=== PATIENT | female | born 1935 | race Caucasian/White ===

== ENCOUNTER 2018-10-06 16:52 | Inpatient (IN) | payer OTHER ==
[~2018-10-06] VITALS: Ht 160 cm; Wt 64.9 kg
[2018-10-06 18:30] VITALS: BP 125/54
[2018-10-06 18:53] LABS: HEMATOCRIT 39.8 % (37.0-47.0); HEMOGLOBIN 13.2 gm/dL (12.0-15.0); MCH 30.9 pg (26.0-34.0); MCHC 33.2 g/dL (28.0-37.0); MCV 93.1 fL (80.0-100.0); RBC 4.28 mil/uL (4.20-5.00); WBC 12.2 thou/uL (4.0-11.0)
[2018-10-06 19:00] LABS: CALCIUM 9.9 mg/dL (8.5-10.1); CREATININE 1.4 mg/dL (0.6-1.0); POTASSIUM 4.4 mmol/L (3.5-5.1)
[2018-10-06 19:41] VITALS: BP 118/53
--- NOTE | 2018-10-06 20:31 | NUR ---
PATIENT CAME IN TO THE FLOOR AT 1745. ADMISSION DISCHARGE NURSE DID THE ADMISISON. DR Reina BOWER INFORMED, ORDER RECIVED FOR ADMISSION, ORDERS ENTERED. REPORT GIVEN TO NIGHT NURSE.
--- NOTE | 2018-10-07 01:15 | NUR ---
PT'S TEMP AT START OF SHIFT WAS 100.5,PHYSICAIN NOTIFIED,ORDER NOTED AND CARRIED OUT.PT REQUESTED FOR A FLORES CATH,PHYSICIAN'S ORDER NOTED AND CARRIED OUT.PT ON 2L/NC THIS SHIFT.COLOSTOMY IN PLACE.IVF INFUSING ORDERED.FALL PRECAUTIONS IN PLACE,CALL LIGHT WITHIN REACH.
[2018-10-07 03:57] VITALS: BP 138/52
[2018-10-07 07:10] VITALS: BP 148/62
--- NOTE | 2018-10-07 08:01 | NUR ---
RECEIVED PT APPROX 0715. A/O. C/O BLADDER PRESSURE. FLORES REPLACED BY AGNES AGARWAL. RYAN GREEN. NO NOTED SOA. COLOSTOMY WITH BROWN OUTPUT. BED ALARM ON. RESTING IN BED. WILL CONT. TO MONITOR.
--- NOTE | 2018-10-07 13:21 | H ---
[facility] [place] [address] HISTORY AND PHYSICAL Name: DARIO DE LA CRUZ Room #: 418-P [facility] M.R.#: [id number] Admission: 10/06/18 ������������������ Attend Phys: Fernando Pierce Discharge: ������������������ Date of : 39 Report #: [id number] THIS REPORT FOR: //name// CC: David Okeefe DATE OF SERVICE: 10/06/2018 CHIEF COMPLAINT: Weakness and cough. HISTORY OF PRESENT ILLNESS: The patient is an 83-year-old female who was admitted from the office with generalized weakness and cough for several days. She has had a congested cough and has not been eating well. She is globally weak and is having difficulty managing at home. She has had some subjective shortness of breath. She was assessed in the office yesterday and directed for admission for pulmonary treatment. She was mildly hypotensive with blood pressure 95/59 and room air oxygen saturation of 91%. There has also been a report of low-grade fever. PAST MEDICAL HISTORY: Hypertension, depression, scoliosis, chronic back pain. PAST SURGICAL HISTORY: Hip replacement in 2009, colectomy with colostomy in 2014, abdominal hernia repair and cholecystectomy in 2007, carotid artery endarterectomy in 2018. FAMILY HISTORY: Noncontributory. SOCIAL HISTORY: She lives at home. Supportive family. No chronic alcohol or tobacco use. ALLERGIES: None. MEDICATIONS: Percocet 10 mg, tramadol 50 mg as needed, Plavix 75 mg, Coreg 12.5 mg, Cymbalta 30 mg b.i.d., Seroquel 50 mg 1-2 at bedtime, oxybutynin 5 mg, Protonix 40 mg, gabapentin 300 mg, lamotrigine 200 mg, Lipitor 10 mg, Flexeril 5 mg t.i.d. p.r.n. REVIEW OF SYSTEMS: She just complains of a congested cough. No headache, chest pain, shortness of breath, abdominal pain, nausea, vomiting, diarrhea, constipation, dysuria, syncope. She is having trouble urinating overnight. A Gonzalez catheter has been placed. OBJECTIVE: VITAL SIGNS: Temperature 36.9, pulse 65, respirations 18, blood pressure 140/62, O2 sat 99% on 2 liters. GENERAL: She is awake, resting in bed in no distress. HEAD AND NECK: Unremarkable. [address] [place] [address] HISTORY AND PHYSICAL Name: DARIO DE LA CRUZ Room #: 418-P [facility] .R.#: [id number] Admission: 10/06/18 ������������������ Attend Phys: Fernando Pierce Discharge: ������������������ Date of : 39 Report #: [id number] LUNGS: Have expiratory rhonchi bilateral. HEART: Regular, no murmur. ABDOMEN: Soft, normoactive bowel sounds. EXTREMITIES: No edema. NEUROLOGIC: Motor strength 3/5 throughout. LABORATORY DATA: Creatinine is 1.4. White count 12.2. Chest x-ray suggestive of scattered patchy infiltrate. ASSESSMENT: 1. Pneumonia. 2. Hypertension. 3. Chronic kidney disease, stage 3. PLAN: Antibiotics have been ordered along with steroids for congested wheezing and nebulized treatments. We will initiate therapies and activity and Lovenox for DVT prophylaxis. ��������������������������������������������� <ELECTRONICALLY SIGNED> ���������������������������������������� By: Ferny Cardona MD ��������������������������������������������� 10/07/18 1321 [id number] Ferny Cardona MD /nt
[2018-10-07] MEDS ORDERED: CARVEDILOL12.5 MG PO (14:27)
[2018-10-07] MEDS ORDERED: PERCOCET 10-321 EACH PO (14:27)
[2018-10-07] MEDS ORDERED: PLAVIX 75 MG TA75 M1 PO (14:27)
[2018-10-07] MEDS ORDERED: TRAMADOL 50 MG50 MG PO (14:27)
[2018-10-07] MEDS ORDERED: SEROQUEL 50 MG50 MG PO (14:28)
[2018-10-07] MEDS ORDERED: CYMBALTA30 MG PO (14:28)
[2018-10-07] MEDS ORDERED: OXYBUTYNIN 5 MG5 M2 PO (14:30)
[2018-10-07] MEDS ORDERED: PROTONIX40 M1 PO ×2 (14:30→14:31)
[2018-10-07] MEDS ORDERED: NEURONTIN 300300 M1 PO (14:32)
[2018-10-07] MEDS ORDERED: LAMICTAL XR200 MG PO (14:32)
[2018-10-07] MEDS ORDERED: LIPITOR10 MG PO (14:33)
[2018-10-07] MEDS ORDERED: CYCLOBENZAPRINE5 MG PO (14:34)
--- NOTE | 2018-10-07 15:21 | NUR ---
ASSESSMENT-PT WAS LIVING AT HOME AND SHE HAD A SON THAT WAS IN AND OUT. SHE HAD VISITING TOM T DUTY COMING AT 10AM-1400, THEN [id number] DAILY BUT CANCELLED HER CONTRACT LAST WEEK. SHE WAS SUPPOSED TO FLY TO [place] TOMORROW AT 7PM AND THEN WAS MOVING INTO AN ASSISTED LIVING FACILITY. DTR LIVES IN [facility]. PT HAS ANOTHER SON THAT LIVES IN [place] THAT IS HERE VISITING NOW. PT NEEDS ASSIST WITH DRESSING, ABLE TO BATHE SELF. NEEDS ASSIST WITH MEALS, CLEANING ETC. 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 FOLLOWING TO ASSIST WITH DC PLANNING.
[2018-10-07 16:48] VITALS: BP 143/58
--- NOTE | 2018-10-07 20:07 | NUR ---
PT AGREES TO MOVE TO [facility]. REPORT ALREADY GIVEN TO MATTHEW AGARWAL.PT TRANSPORTED VIA BED WITH TWO STAFF. PT LEFT IN STABLE CONDITION-NO COMPLAINS OF PAIN-ON AND WITH NO RESP DISTRESS.
[2018-10-07 20:26] VITALS: BP 127/52
[2018-10-07 20:28] VITALS: BP 127/52
--- NOTE | 2018-10-07 20:28 | NUR ---
Pt. transferred from , room 418 to [facility], room 221. Transported in a stretcher w/ asst of 2 BED MANAGER's. Pt. transferred from one bed to the next by 4 staff members using a draw sheet. Belongings sent w/ pt. Pt. orientated to room/call system/[facility], by this ghost writer. Pt has no c/o pain or discomfort. No s/s of acute distress noted. Pt/ in bed resting w/ call light/desired belongings within reach. Will continue to monitor.
--- NOTE | 2018-10-07 20:36 | NUR ---
Call out to pt.'s son, Miriam Matt re: pt transfer from to [facility]. He states " thank you for informing me, we will be there to see her in the a.m."
--- NOTE | 2018-10-08 05:19 | NUR ---
Assumed pt. care at 2030. Pt A&Ox4; Swallows meds whole w/o difficulty. 02 intact at 3LNC; No sob noted/color WNL. remains on lovenox therapy; no s/s of bleeding noted. Remains on IVABT/URI; no adverse reactions noted. Non - productive cough noted. RAC SL noted; infused ABT/flushed w/o difficulty. Colostomy intact to RLQ; soft brown/green stool noted. Gonzalez Cath intact/draining clear, dark yellow urine w/o difficulty; no odor noted, at this time. SCDs intact to BLEs. Pt denies pain or discomfort. No s/s of acute distress noted. Pt asleep in bed w/ call light/desired belongings within reach. PO fluids encouraged. Will continue to monitor.
[2018-10-08 07:40] VITALS: BP 180/80
--- NOTE | 2018-10-08 10:37 | NUR ---
SW reviewed chart and spoke with nursing. Pt was transferred to [facility] from . LUIS MIGUEL is following to assist as needed with discharge planning.
--- NOTE | 2018-10-08 11:28 | NUR ---
ASSUMED CARE OF PATIENT THIS MORNING. PATIENT IS A&OX4. SHE IS UP WITH 1 ASSIST AND WALKER. FALL PRECAUTIONS ARE IN PLACE. SHE HAS WEAKNESS WHEN AMBULATING. PATIENT HAS A COLOSTOMY AND A CATHETER. SHE HAS NOT COMPLAINED OF ANY PAIN THIS MORNING. MORNING MEDICATIONS WERE ADMINISTERED AND TOLERATED. SHE IS ON 3L O2. PATIENT'S FAMILY IS CONCERNED ABOUT PATIENT BEING DISCHARGED TODAY SINCE SHE HAS A FLIGHT TO [facility] SCHEDULED. AWAITING TO SPEAK WITH THE PHYSICIAN ABOUT PLAN OF CARE. PATIENT IS CURRENTLY SITTING IN CHAIR WITH CALL LIGHT AND BELONGINGS WITHIN REACH.
[2018-10-08 19:42] VITALS: BP 139/80
[2018-10-09 07:14] LABS: HEMATOCRIT 42.2 % (37.0-47.0); HEMOGLOBIN 13.9 gm/dL (12.0-15.0); MCH 30.7 pg (26.0-34.0); MCHC 32.9 g/dL (28.0-37.0); MCV 93.2 fL (80.0-100.0); RBC 4.53 mil/uL (4.20-5.00); WBC 13.5 thou/uL (4.0-11.0)
[2018-10-09 07:25] LABS: CALCIUM 10.2 mg/dL (8.5-10.1); CREATININE 1.2 mg/dL (0.6-1.0)
[2018-10-09 09:00] VITALS: BP 150/84
--- NOTE | 2018-10-09 12:37 | NUR ---
ASSUMED PATIENT AND CARES AT 0715, PATIENT IN BED SLEEPING WITHOUT S/S OF DISTRESS, PATIENT ON RA, RIGHT FOREARM SALINE LOCK INTACT, LEFT FOREARM SALINE LOCK INTACT, BSC AT BEDSIDE, WALKER AGAINST WALL, FALL PRECAUTIONS IN PLACE, COLOSTOMY TO RLQ, PERSONAL BELONGINGS AND CALL LIGHT IN REACH, WILL CONTINUE TO MONITOR
--- NOTE | 2018-10-09 13:44 | NUR ---
LUIS MIGUEL reviewed chart and spoke with nursing and attending physician. Pt is currently off O2. Will monitor O2 sat today. LUIS MIGUEL spoke with pt's son, Sam, via phone to discuss discharge plan. Plan is for pt to fly to [place] when ready for discharge. Pt's son is off work until 10/16 to fly with her to [place]. Pt's son will provide contact info to LUIS MIGUEL for [facility] [place] facility in [place]. LUIS MIGUEL will contact and send info if requested. LUIS MIGUEL is following to assist as needed with discharge planning.
[2018-10-09 20:05] VITALS: BP 154/85
--- NOTE | 2018-10-10 05:02 | NUR ---
PATIENT ALERT AND ORIENTED X4. DENIES PAIN. CALLED TO GET A SLEEPER FOR PATIENT, MELATONIN ORDER OBTAINED AND GIVEN. PATIENT SLEPT MOST OF NIGHT.
[2018-10-10 07:15] LABS: HEMATOCRIT 43.7 % (37.0-47.0); HEMOGLOBIN 14.5 gm/dL (12.0-15.0); MCH 31.1 pg (26.0-34.0); MCHC 33.2 g/dL (28.0-37.0); MCV 93.5 fL (80.0-100.0); RBC 4.67 mil/uL (4.20-5.00); WBC 10.1 thou/uL (4.0-11.0)
[2018-10-10 07:23] LABS: CALCIUM 10.4 mg/dL (8.5-10.1); CREATININE 1.2 mg/dL (0.6-1.0); POTASSIUM 4.9 mmol/L (3.5-5.1)
--- NOTE | 2018-10-10 07:51 | NUR ---
ASSUMED PATIENT AND CARES AT 0715, PATIENT IN BED SLEEPING, NO S/S OF DISTRESS PAIN OR DISCOMFORT, REPORTED A&OX4 LAST NIGHT, RIGHT AND LEFT FOREARM SALINE LOCKS INTACT, REMAINS SBA FOR TRANSFERS AND AMBULATION PER WALKER, PERSONAL BELONGINGS AND CALL LIGHT IN REACH, WILL CONTINUE TO MONITOR
[2018-10-10 10:35] VITALS: BP 174/86
[2018-10-10] MEDS ORDERED: CEFDINIR300 MG PO (11:42)
[2018-10-10] MEDS ORDERED: PREDNISONE 20 M20 MG PO (11:42)
[2018-10-10] MEDS ORDERED: AZITHROMYCIN 2250 MG PO (11:43)
--- NOTE | 2018-10-10 15:21 | NUR ---
LUIS MIGUEL reviewed chart and spoke with nursing and attending physician. Pt is progressing towards goals for discharge. Discharge home is anticipated for tomorrow. Pt has been off O2. LUIS MIGUEL spoke with pt's dtr, Lidia, via phone to provide update and discuss discharge plan. Pt will fly to [place] with her son on Saturday, 10/12. LUIS MIGUEL included contact info for SW in pt's discharge summary, in case the new facility needs any info on Saturday, 10/13. Pt's family will provide transportation home when discharged. Lidia will update her brother, Sam. No additional SW needs identified at this time, but is available to assist should needs arise.
--- NOTE | 2018-10-10 18:00 | NUR ---
I AGREE WITH NURSING ASSESSMENT DONE DIAN/COLUMBA.
[2018-10-10 19:23] VITALS: BP 146/81
--- NOTE | 2018-10-11 04:55 | NUR ---
ASSUMED CARE OF PATIENT AT 1900. VSS. PT AND PT'S FAMILY WAS CONCERNED THAT SHE HAD NOT BEEN RESTARTED ON HOME MEDICATIONS. A MEDICATION RECONCILIATION WAS ATTEMPTED BUT PATIENT WAS UNSURE OF WHAT MEDICATION SHE TAKES AT HOME. PT ADVISED TO CALL [facility] ON AND MAXIME TO OBTAIN THE MOST UP TO DATE LIST OF HOME MEDICATIONS. WILL NOTIFY ONCOMING NURSE. PT UP TO BSC INDEPENDENTLY. RIGHT AND LEFT FA IV PATENT AND SALINE LOCKED. CEFTRIAXONE INFUSED INTO LEFT FA IV WITHOUT COMPLICATION. COLOSTOMY BAG AND STOMA WERE CLEANED BEFORE PT WENT TO SLEEP. PT CURRENTLY SLEEPING SOUNDLY IN BED IN NO ACUTE DISTRESS. CALL LIGHT WITHIN REACH. BED LOCKED AND IN LOWEST POSITION. WCTM.
[2018-10-11 08:36] VITALS: BP 165/76
[2018-10-11 10:20] VITALS: BP 165/76
--- NOTE | 2018-10-11 11:54 | NUR ---
ASSUMED CARE OF PATIENT THIS MORNING. PATIENT IS A&OX4. SHE AMBULATES WITH MINIMUM ASSIST. TRANSFERS TO THE [facility] INDEPENDENTLY. SHE HAS A COLOSTOMY BAG, THAT PUT OUT FORMED STOOLS. SHE HAS NOT COMPLAINED OF ANY PAIN OR DISCOMFORT TODAY. SHE WILL BE DISCHARGING HOME THIS AFTERNOON, WITH SELF CARE. PATIENT IS CURRENTLY LYING IN BED WITH CALL LIGHT WITHIN REACH. SHE IS AWAITING ON HER SON TO PICK HER UP FOR DEPARTURE.
== END 2018-10-11 15:15 | disposition home or self-care (01) | DRG 195 ==
LOC: 4E 16:52 → SICU 10-07 20:11
PROVIDERS: Internal Medicine Geriatric Medicine; ADMIT Internal Medicine
DX: J18.9 Pneumonia, unspecified organism (principal); N18.3 Chronic kidney disease, stage 3 (moderate); F32.9 Major depressive disorder, single episode, unspecified; G89.29 Other chronic pain; M54.9 Dorsalgia, unspecified; I12.9 Hypertensive chronic kidney disease with stage 1 through stage 4 chronic kidney disease, or unspecified chronic kidney disease; Z96.649 Presence of unspecified artificial hip joint; Z90.49 Acquired absence of other specified parts of digestive tract; Z93.3 Colostomy status; Z79.899 Other long term (current) drug therapy
CPT/HCPCS: 10783; 15002